=== PATIENT | female | born 1990 | race Caucasian/White ===

== ENCOUNTER 2016-05-11 11:14 | Emergency (ER) | payer BC ==
[~2016-05-11] VITALS: Ht 170.2 cm; Wt 61.7 kg
[2016-05-11 11:15] VITALS: BP 143/87; PULSE 99; RESP 24; TEMP 98.4; O2SAT 100
--- NOTE | 2016-05-11 11:15 | NUR ---
Patient in stable condition, alert and oriented x4. Patient states began a new weight loss supplement yesterday and stopped drinking alcohol yesterday and now feels heart palpitations. Patient states has been drinking a few bottles of wine everyday for 2 years and now wants to stop. Patient appears shaky. No chest pain, pressure or radiating pain per patient. Addendum: 05/11/16 at 1140 by GREG heart palpitations since yesterday
--- NOTE | 2016-05-11 11:16 | NUR ---
Dr. Moseley at bedside
[2016-05-11] MEDS ORDERED: NACL 0.9% 1,000 ML IV ONE (11:30)
[2016-05-11] MEDS ORDERED: LORazepam 2 MG/ML VIAL (FOR ER USE) IVP ONE (11:30)
[2016-05-11] MEDS ORDERED: FOLIC ACID 1 MG, THIAMINE HCL 100 MG, MAGNESIUM SULFATE 1 GM, MVI 10 ML in NACL 0.9% 1,... IV ONE (11:30)
[2016-05-11 11:34] LABS: BASOPHILS % (AUTO) 0.4 % (0.0-2.0); EOSINOPHILS # (AUTO) 0.3 K/uL (0.0-0.4); EOSINOPHILS % (AUTO) 3.2 % (0.0-4.0); HEMATOCRIT 43.1 % (36-48); HEMOGLOBIN 14.5 g/dL (12.0-16.0); LYMPHOCYTES % (AUTO) 20.6 % (20.5-51.5); MEAN CORPUSCULAR HEMOGLOBIN 32 pg (27-31); MEAN CORPUSCULAR HGB CONC 34 % (32-36); MEAN CORPUSCULAR VOLUME 95 fL (79.0-98.0); MONOCYTES # (AUTO) 0.5 K/uL (0.0-1.0); NEUTROPHILS # (AUTO) 6.8 K/uL (1.8-7.7); NEUTROPHILS % (AUTO) 70.8 % (40.0-70.0); PLATELET COUNT (AUTO) 267 K/uL (130-430); RED BLOOD CELL COUNT(AUTO) 4.53 MIL/uL (4.2-6.2); WHITE BLOOD COUNT (AUTO) 9.6 K/uL (4.8-10.8)
[2016-05-11 11:46] LABS: BILIRUBIN,URINE NEGATIVE (NEGATIVE); BLOOD, URINE NEGATIVE (NEGATIVE); CLARITY/URINE SL HAZY (CLEAR); COLOR,URINE YELLOW (YELLOW); GLUCOSE,URINE NEGATIVE (NEGATIVE); KETONES,URINE NEGATIVE (NEGATIVE); LEUKOCYTE ESTERASE ,URINE 1+ (NEGATIVE); NITRITE, URINE NEGATIVE (NEGATIVE); PROTEIN URINE NEGATIVE (NEGATIVE); UROBILINOGEN,URINE 0.2 (0.2-1.0)
[2016-05-11 11:47] LABS: ANION GAP 9 (5-15); CALCIUM 9.5 mg/dL (8.4-11.0); CHLORIDE 101 mmol/L (98-107); CREATININE 0.74 mg/dL (0.55-1.30); GFR AFRICAN AMERICAN 124 mL/min (>90); GLUCOSE 89 mg/dL (70-99); POTASSIUM 3.9 mmol/L (3.5-5.1); SODIUM SERUM 136 mmol/L (136-145); UREA NITROGEN, BLOOD 10 mg/dL (8-21)
[2016-05-11 11:48] LABS: INR 0.9 (0.8-1.2); PROTHROMBIN TIME 10.2 SECS (9.5-12.5)
[2016-05-11 11:51] LABS: ALANINE AMINOTRANSFERASE 35 U/L (12-78); ALBUMIN 4.2 g/dL (3.4-4.8); ALCOHOL, BLOOD 66 mg/dL (<10); ASPARTATE AMINOTRANSFERASE 37 U/L (10-37); TOTAL BILIRUBIN 0.9 mg/dL (0.0-1.0); TOTAL PROTEIN, SERUM 8.4 g/dL (6.4-8.3)
[2016-05-11 11:52] LABS: ACETAMINOPHEN < 1 ug/mL (1-30); SALICYLATE < 1 mg/dL (3-30)
[2016-05-11 12:00] LABS: BACTERIA,URINE FEW /HPF (None Seen); RBC,URINE NONE SEEN /HPF (0-3)
[2016-05-11 12:05] LABS: BARBITURATE, URINE NEGATIVE (NEG <=200); BENZODIAZEPINE, URINE NEGATIVE (NEG <=150); CANNABINOID, URINE NEGATIVE (NEG <=50); COCAINE, URINE NEGATIVE (NEG <=150); METHAMPHETAMINES SCREEN,URINE NEGATIVE (NEG <=500); OPIATE, URINE NEGATIVE (NEG <=100); PHENCYCLIDINE SCREEN,URINE NEGATIVE (NEG <=25); UR TRICYCLIC ANTIDEPRESSANTS NEGATIVE (NEG <=300); URINE AMPHETAMINE NEGATIVE (NEG <=500); URINE METHADONE NEGATIVE (NEG <=200); URINE OXYCODONE SCREEN NEGATIVE (NEG <=100); URINE PROPOXYPHENE SCREEN NEGATIVE (NEG <=300)
--- NOTE | 2016-05-11 12:30 | NUR ---
Called pharmacy again regarding need for banana bag, stated will bring
--- NOTE | 2016-05-11 13:08 | NUR ---
Patient in stable condition, no tremors/shakiness noted. Stated is feeling better.
[2016-05-11 14:00] VITALS: BP 115/71; PULSE 84; RESP 18; TEMP 98.1; O2SAT 100
--- NOTE | 2016-05-11 14:00 | NUR ---
Patient given written and verbal discharge instructions and verbalizes understanding. ER MD discussed with patient the results and treatment provided. Patient in stable condition. ID arm band removed. IV catheter removed intact and dressing applied, no active bleeding. Rx of ativan 1mg given. Patient educated on pain management and to follow up with PMD. Pain Scale 0/10. Opportunity for questions provided and answered.
== END 2016-05-11 14:00 | disposition home or self-care (01) ==
LOC: SED 11:14
DX: F10.239 Alcohol dependence with withdrawal, unspecified (principal); Y90.3 Blood alcohol level of 60-79 mg/100 ml
CPT/HCPCS: 36415; 71010; 80053; 80307; 81000; 81025; 84484; 85025; 85610; 85730; 87086; 93005; 96361; 96365; 96375; 99285; G0480; G0481; G0482; J2060; J3411; J3475; J3490; J7030

== ENCOUNTER 2016-12-26 10:44 | Inpatient (IN) | payer BC ==
[~2016-12-26] VITALS: Ht 170.2 cm; Wt 56.7 kg
[2016-12-26 10:45] VITALS: BP_SYST 135
[2016-12-26] MEDS ORDERED: LORazepam 2 MG/ML VIAL (FOR ER USE) IVP ONE (11:00)
[2016-12-26] MEDS ORDERED: NACL 0.9% 1,000 ML IV ONE ×2 (11:00→11:30)
[2016-12-26 11:18] LABS: BASOPHILS # (AUTO) 0.1 K/uL (0.0-0.2); BASOPHILS % (AUTO) 1.2 % (0.0-2.0); EOSINOPHILS # (AUTO) 0.4 K/uL (0.0-0.4); EOSINOPHILS % (AUTO) 7.5 % (0.0-4.0); HEMOGLOBIN 13.6 g/dL (12.0-16.0); LYMPHOCYTES # (AUTO) 2.2 K/uL (1.0-5.5); LYMPHOCYTES % (AUTO) 38.7 % (20.5-51.5); MEAN CORPUSCULAR HEMOGLOBIN 33 pg (27-31); MEAN CORPUSCULAR HGB CONC 33 % (32-36); MEAN CORPUSCULAR VOLUME 98 fL (79.0-98.0); MONOCYTES # (AUTO) 0.5 K/uL (0.0-1.0); NEUTROPHILS # (AUTO) 2.4 K/uL (1.8-7.7); NEUTROPHILS % (AUTO) 43.6 % (40.0-70.0); PLATELET COUNT (AUTO) 273 K/uL (130-430); RED BLOOD CELL COUNT(AUTO) 4.17 MIL/uL (4.2-6.2); RED CELL DISTRIBUTION WIDTH 13.3 % (9.0-15.0); WHITE BLOOD COUNT (AUTO) 5.6 K/uL (4.8-10.8)
[2016-12-26] MEDS ORDERED: LORazepam 2 MG/ML VIAL IVP PRN (11:30)
[2016-12-26] MEDS ORDERED: MORPHINE 2 MG/ML INJ. SYRINGE IVP PRN (11:30)
[2016-12-26] MEDS ORDERED: DOCUSATE SODIUM 100 MG CAPSULE PO PRN (11:30)
[2016-12-26] MEDS ORDERED: ACETAMINOPHEN 325 MG TABLET PO PRN (11:30)
[2016-12-26] MEDS ORDERED: POTASSIUM CHLORIDE 10 MEQ TAB.PRT.SR PO PRN (11:30)
[2016-12-26] MEDS ORDERED: ONDANSETRON HCL 4 MG/2 ML VIAL IVP PRN (11:30)
[2016-12-26] MEDS ORDERED: MAGNESIUM SULFATE 50 ML IV PRN (11:30)
[2016-12-26 11:32] LABS: BARBITURATE, URINE NEGATIVE (NEG <=200); BENZODIAZEPINE, URINE NEGATIVE (NEG <=150); CANNABINOID, URINE NEGATIVE (NEG <=50); COCAINE, URINE NEGATIVE (NEG <=150); METHAMPHETAMINES SCREEN,URINE NEGATIVE (NEG <=500); OPIATE, URINE NEGATIVE (NEG <=100); PHENCYCLIDINE SCREEN,URINE NEGATIVE (NEG <=25); UR TRICYCLIC ANTIDEPRESSANTS NEGATIVE (NEG <=300); URINE AMPHETAMINE NEGATIVE (NEG <=500); URINE METHADONE NEGATIVE (NEG <=200); URINE OXYCODONE SCREEN NEGATIVE (NEG <=100); URINE PROPOXYPHENE SCREEN NEGATIVE (NEG <=300)
[2016-12-26 11:36] LABS: CALCIUM 9.3 mg/dL (8.4-11.0); CREATININE 0.73 mg/dL (0.55-1.30); POTASSIUM 3.7 mmol/L (3.5-5.1)
[2016-12-26 11:40] LABS: TOTAL BILIRUBIN 0.5 mg/dL (0.0-1.0)
[2016-12-26] MEDS ORDERED: chlordiazePOXIDE HCL 25 MG CAPSULE PO PRN (11:45)
[2016-12-26] MEDS ORDERED: ALBMDI INH (11:46)
[2016-12-26 13:08] VITALS: BP_SYST 120
[2016-12-26] MEDS ORDERED: levETIRAcetam 500 MG TABLET PO ONE (15:30)
[2016-12-26] MEDS ORDERED: levETIRAcetam 1,000 MG in NS 100 ML IV ONE (16:00)
[2016-12-26] MEDS ORDERED: ALBUTEROL SULFATE 0.083% 2.5 MG/3 ML VIAL.NEB INH PRN (16:00)
[2016-12-26] MEDS ORDERED: TOPIRAMATE 25 MG TABLET(TOPAMAX) PO ONE (16:15)
[2016-12-26 16:51] VITALS: BP_SYST 120
[2016-12-26] MEDS: MORPHINE 2 MG/ML INJ. SYRINGE IVP PRN ×2 (19:53→23:53)
[2016-12-26] MEDS: TOPIRAMATE 25 MG TABLET(TOPAMAX) PO SCH (21:19)
[2016-12-26] MEDS: levETIRAcetam 500 MG TABLET PO SCH (21:19)
[2016-12-26] MEDS: chlordiazePOXIDE HCL 25 MG CAPSULE PO PRN (21:31)
[2016-12-26] MEDS: ZOLPIDEM TARTRATE 5 MG TABLET PO PRN (21:31)
[2016-12-26] MEDS ORDERED: FOLIC ACID 1 MG, THIAMINE HCL 100 MG, MAGNESIUM SULFATE 1 GM, MVI 10 ML in NACL 0.9% 1,... IV ONE (22:15)
[2016-12-27] VITALS (7 sets, daily range): BP systolic 104–139
[2016-12-27] MEDS: MORPHINE 2 MG/ML INJ. SYRINGE IVP PRN ×4 (04:06→20:00)
[2016-12-27] MEDS: chlordiazePOXIDE HCL 25 MG CAPSULE PO PRN ×4 (06:28→20:33)
[2016-12-27 07:38] LABS: BASOPHILS # (AUTO) 0.1 K/uL (0.0-0.2); BASOPHILS % (AUTO) 0.8 % (0.0-2.0); EOSINOPHILS # (AUTO) 0.8 K/uL (0.0-0.4); EOSINOPHILS % (AUTO) 12.2 % (0.0-4.0); HEMATOCRIT 38.2 % (36-48); HEMOGLOBIN 13.1 g/dL (12.0-16.0); LYMPHOCYTES # (AUTO) 3.2 K/uL (1.0-5.5); LYMPHOCYTES % (AUTO) 46.9 % (20.5-51.5); MEAN CORPUSCULAR HEMOGLOBIN 34 pg (27-31); MEAN CORPUSCULAR HGB CONC 34 % (32-36); MEAN CORPUSCULAR VOLUME 99 fL (79.0-98.0); MONOCYTES # (AUTO) 0.4 K/uL (0.0-1.0); NEUTROPHILS # (AUTO) 2.3 K/uL (1.8-7.7); NEUTROPHILS % (AUTO) 34.1 % (40.0-70.0); PLATELET COUNT (AUTO) 215 K/uL (130-430); RED BLOOD CELL COUNT(AUTO) 3.85 MIL/uL (4.2-6.2); RED CELL DISTRIBUTION WIDTH 13.1 % (9.0-15.0); WHITE BLOOD COUNT (AUTO) 6.8 K/uL (4.8-10.8)
[2016-12-27 07:54] LABS: CALCIUM 9.3 mg/dL (8.4-11.0); CREATININE 0.72 mg/dL (0.55-1.30); POTASSIUM 3.5 mmol/L (3.5-5.1)
[2016-12-27] MEDS: TOPIRAMATE 25 MG TABLET(TOPAMAX) PO SCH ×2 (09:40→20:34)
[2016-12-27] MEDS: CITALOPRAM HYDROBROMIDE 20 MG TABLET PO SCH (09:40)
[2016-12-27] MEDS: levETIRAcetam 500 MG TABLET PO SCH ×2 (09:40→20:33)
[2016-12-27] MEDS: ZOLPIDEM TARTRATE 5 MG TABLET PO PRN (21:28)
[2016-12-28] MEDS: MORPHINE 2 MG/ML INJ. SYRINGE IVP PRN ×2 (02:16→06:18)
[2016-12-28] MEDS: chlordiazePOXIDE HCL 25 MG CAPSULE PO PRN ×3 (02:35→09:55)
[2016-12-28 03:40] VITALS: BP_SYST 108
[2016-12-28 07:46] LABS: BASOPHILS % (AUTO) 0.6 % (0.0-2.0); EOSINOPHILS # (AUTO) 0.8 K/uL (0.0-0.4); EOSINOPHILS % (AUTO) 10.4 % (0.0-4.0); HEMATOCRIT 40.7 % (36-48); HEMOGLOBIN 13.8 g/dL (12.0-16.0); LYMPHOCYTES # (AUTO) 2.7 K/uL (1.0-5.5); MEAN CORPUSCULAR HEMOGLOBIN 34 pg (27-31); MEAN CORPUSCULAR HGB CONC 34 % (32-36); MEAN CORPUSCULAR VOLUME 99 fL (79.0-98.0); MONOCYTES # (AUTO) 0.5 K/uL (0.0-1.0); MONOCYTES % (AUTO) 6.2 % (1.7-9.3); NEUTROPHILS # (AUTO) 3.9 K/uL (1.8-7.7); NEUTROPHILS % (AUTO) 48.8 % (40.0-70.0); PLATELET COUNT (AUTO) 232 K/uL (130-430); RED CELL DISTRIBUTION WIDTH 12.9 % (9.0-15.0); WHITE BLOOD COUNT (AUTO) 7.9 K/uL (4.8-10.8)
[2016-12-28 08:01] LABS: CALCIUM 9.5 mg/dL (8.4-11.0); CREATININE 0.8 mg/dL (0.55-1.30); POTASSIUM 3.9 mmol/L (3.5-5.1)
[2016-12-28 08:15] VITALS: BP_SYST 144
[2016-12-28] MEDS: CITALOPRAM HYDROBROMIDE 20 MG TABLET PO SCH (09:55)
[2016-12-28] MEDS: levETIRAcetam 500 MG TABLET PO SCH (09:56)
[2016-12-28] MEDS: TOPIRAMATE 25 MG TABLET(TOPAMAX) PO SCH (09:56)
[2016-12-28 10:13] VITALS: BP_SYST 144
[2016-12-28] MEDS ORDERED: TOP25 (10:19)
[2016-12-28] MEDS ORDERED: CEL20 PO (10:20)
[2016-12-28] MEDS ORDERED: TOP25 PO (10:20)
[2016-12-28] MEDS ORDERED: HYDR-1189 PO (10:20)
== END 2016-12-28 11:10 | disposition home or self-care (01) | DRG 101 ==
LOC: SED 10:44 → STU 12:48
PROVIDERS: ADMIT General Practice; ATTEND General Practice
DX: G40.409 Other generalized epilepsy and epileptic syndromes, not intractable, without status epilepticus (principal); F10.239 Alcohol dependence with withdrawal, unspecified; F17.200 Nicotine dependence, unspecified, uncomplicated; J45.909 Unspecified asthma, uncomplicated; F32.9 Major depressive disorder, single episode, unspecified; F41.1 Generalized anxiety disorder; Z88.8 Allergy status to other drugs, medicaments and biological substances; Z91.14 Patient's other noncompliance with medication regimen
CPT/HCPCS: 36415; 80048; 80053; 80307; 81025; 83735-TC; 84703; 85025; 96361; 96374; 99285; G0482; J1953; J2060; J2270; J3411; J3475; J3490; J7030

== ENCOUNTER 2017-02-19 08:39 | Emergency (ER) | payer BC ==
[~2017-02-19] VITALS: Ht 170.2 cm; Wt 54.4 kg
[~2017-02-19 08:39] MED LIST: ALBMDI INH; CEL20 PO; HYDR-1189 PO; TOP25 PO
[2017-02-19] MEDS ORDERED: methylPREDNISolone SOD SUCC/PF 62.5 MG/ML VIAL IVP ONE (08:45)
[2017-02-19] MEDS ORDERED: IPRATROPIUM BROM 0.5 MG/2.5 ML VIAL.NEB (ATROVENT) IH ONE (08:45)
[2017-02-19] MEDS ORDERED: ALBUTEROL SULFATE 0.083% 2.5 MG/3 ML VIAL.NEB IH ONE ×2 (08:45→10:15)
[2017-02-19 08:46] VITALS: BP_SYST 164
[2017-02-19] MEDS ORDERED: methylPREDNISolone SOD SUCC/PF 62.5 MG/ML VIAL ONE (08:46)
--- NOTE | 2017-02-19 08:46 | NUR ---
Patient to ER bed 6 to gown for evaluation. Side rails up. Report given to Félix CORBETT.
--- NOTE | 2017-02-19 08:47 | NUR ---
ER at bedside examining patient.
--- NOTE | 2017-02-19 08:50 | NUR ---
Pt presents to ED c/o asthma exacerbation since approx 0400 this AM. Pt s/s not resolving w/ home breathing tx. Pt has audible wheezes. RT called for breathing tx.
--- NOTE | 2017-02-19 09:00 | NUR ---
Pt tolerating breathing tx well. Pt reports mild improvement.
--- NOTE | 2017-02-19 09:52 | NUR ---
EL Parada at bedside for reevaluation of patient.
--- NOTE | 2017-02-19 10:30 | NUR ---
Pt no longer has auble wheezes.Pt shaking from breathing tx.
--- NOTE | 2017-02-19 11:30 | NUR ---
Pt receiving peek flow. Pt reports continued resolving of symptoms.
[2017-02-19 12:50] VITALS: BP_SYST 147
--- NOTE | 2017-02-19 12:50 | NUR ---
Patient does not wish to proceed with medical care recommended by Dr. Mohan. Patient given information related to possible complications, up to and including , which could occur as a result of leaving hospital at this time. Patient verbalizes understanding of risks involved leaving against medical advice. Patient has signed AMA form.
== END 2017-02-19 12:40 | disposition left against medical advice (07) ==
LOC: SED 08:39
DX: J45.901 Unspecified asthma with (acute) exacerbation (principal); E11.9 Type 2 diabetes mellitus without complications; I10 Essential (primary) hypertension; Z88.8 Allergy status to other drugs, medicaments and biological substances; Z79.899 Other long term (current) drug therapy
CPT/HCPCS: 94150; 94640; 96374; 99284; J2930

== ENCOUNTER 2017-09-08 22:40 | Emergency (ER) | payer BC ==
[~2017-09-08] VITALS: Ht 170.2 cm; Wt 56.7 kg
[2017-09-08 22:50] VITALS: BP_SYST 119
[2017-09-08] MEDS ORDERED: LORazepam 2 MG/ML VIAL IM ONE (23:15)
[2017-09-08] MEDS ORDERED: LORazepam 2 MG/ML VIAL (FOR ER USE) ONE (23:23)
[2017-09-08 23:57] VITALS: BP_SYST 121
== END 2017-09-08 23:57 | disposition home or self-care (01) ==
LOC: SED 22:40
DX: F11.23 Opioid dependence with withdrawal (principal); F19.10 Other psychoactive substance abuse, uncomplicated; J45.909 Unspecified asthma, uncomplicated; Z79.899 Other long term (current) drug therapy; Z88.8 Allergy status to other drugs, medicaments and biological substances
CPT/HCPCS: 96372; 99283; J2060

== ENCOUNTER 2018-01-10 09:28 | Emergency (ER) | payer BC ==
[~2018-01-10] VITALS: Ht 170.2 cm; Wt 56.7 kg
[2018-01-10 09:28] VITALS: BP_SYST 123
[2018-01-10] MEDS ORDERED: IPRATROPIUM/ALBUTEROL SULFATE 3 ML AMPUL.NEB (DUONEB) INH ONE ×2 (09:45→11:00)
[2018-01-10] MEDS ORDERED: methylPREDNISolone SOD SUCC/PF 62.5 MG/ML VIAL IVP ONE (09:45)
[2018-01-10 09:51] LABS: BASOPHILS # (AUTO) 0.2 K/uL (0.0-0.2); EOSINOPHILS # (AUTO) 1.4 K/uL (0.0-0.4); EOSINOPHILS % (AUTO) 11.9 % (0.0-4.0); HEMATOCRIT 45.1 % (36-48); HEMOGLOBIN 14.7 g/dL (12.0-16.0); LYMPHOCYTES # (AUTO) 2.7 K/uL (1.0-5.5); LYMPHOCYTES % (AUTO) 22.7 % (20.5-51.5); MEAN CORPUSCULAR HEMOGLOBIN 30 pg (27-31); MEAN CORPUSCULAR HGB CONC 33 % (32-36); MEAN CORPUSCULAR VOLUME 93 fL (79.0-98.0); MONOCYTES # (AUTO) 0.7 K/uL (0.0-1.0); MONOCYTES % (AUTO) 5.7 % (1.7-9.3); NEUTROPHILS # (AUTO) 6.9 K/uL (1.8-7.7); NEUTROPHILS % (AUTO) 57.7 % (40.0-70.0); PLATELET COUNT (AUTO) 379 K/uL (130-430); RED BLOOD CELL COUNT(AUTO) 4.86 MIL/uL (4.2-6.2); RED CELL DISTRIBUTION WIDTH 13.5 % (9.0-15.0); WHITE BLOOD COUNT (AUTO) 11.9 K/uL (4.8-10.8)
[2018-01-10 10:01] LABS: CREATININE 0.85 mg/dL (0.55-1.30); POTASSIUM 4.1 mmol/L (3.5-5.1)
[2018-01-10 10:07] LABS: ALBUMIN 4.1 g/dL (3.4-4.8); TOTAL BILIRUBIN 0.4 mg/dL (0.0-1.0)
[2018-01-10 11:36] VITALS: BP_SYST 134
== END 2018-01-10 11:35 | disposition home or self-care (01) ==
LOC: SED 09:28
DX: J45.901 Unspecified asthma with (acute) exacerbation (principal); F41.9 Anxiety disorder, unspecified; Z88.8 Allergy status to other drugs, medicaments and biological substances; Z79.899 Other long term (current) drug therapy
CPT/HCPCS: 36415; 71045; 80053; 85025; 94640; 96374; 99285; J2930; J7620

== ENCOUNTER 2018-03-28 19:15 | Emergency (ER) | payer BC, MEDICAID ==
[~2018-03-28] VITALS: Ht 170.2 cm; Wt 56.7 kg
[2018-03-28 19:28] VITALS: BP_SYST 158
[2018-03-28] MEDS ORDERED: ALBUTEROL SULFATE 0.083% 2.5 MG/3 ML VIAL.NEB INH ONE ×3 (19:28→20:15)
[2018-03-28] MEDS ORDERED: LEVOFLOXACIN 500 MG/D5W 100 ML IV ONE (19:30)
[2018-03-28] MEDS ORDERED: methylPREDNISolone SOD SUCC/PF 62.5 MG/ML VIAL IVP ONE (19:30)
[2018-03-28] MEDS ORDERED: EPINEPHrine 1 MG/ML AMP SUBCUT ONE (19:30)
[2018-03-28] MEDS ORDERED: NACL 0.9% 1,000 ML IV ONE (19:30)
[2018-03-28 19:57] LABS: BASOPHILS # (AUTO) 0.1 K/uL (0.0-0.2); BASOPHILS % (AUTO) 1.1 % (0.0-2.0); EOSINOPHILS # (AUTO) 1.3 K/uL (0.0-0.4); HEMATOCRIT 41.8 % (36-48); HEMOGLOBIN 13.8 g/dL (12.0-16.0); LYMPHOCYTES # (AUTO) 2.4 K/uL (1.0-5.5); LYMPHOCYTES % (AUTO) 21.2 % (20.5-51.5); MEAN CORPUSCULAR HEMOGLOBIN 30 pg (27-31); MEAN CORPUSCULAR HGB CONC 33 % (32-36); MEAN CORPUSCULAR VOLUME 91 fL (79.0-98.0); MONOCYTES # (AUTO) 0.9 K/uL (0.0-1.0); MONOCYTES % (AUTO) 7.9 % (1.7-9.3); NEUTROPHILS # (AUTO) 6.8 K/uL (1.8-7.7); NEUTROPHILS % (AUTO) 58.8 % (40.0-70.0); PLATELET COUNT (AUTO) 361 K/uL (130-430); RED BLOOD CELL COUNT(AUTO) 4.59 MIL/uL (4.2-6.2); RED CELL DISTRIBUTION WIDTH 13.1 % (9.0-15.0); WHITE BLOOD COUNT (AUTO) 11.5 K/uL (4.8-10.8)
[2018-03-28 19:58] LABS: CALCIUM 8.5 mg/dL (8.4-11.0); CREATININE 0.64 mg/dL (0.55-1.30); POTASSIUM 3.8 mmol/L (3.5-5.1)
[2018-03-28 20:04] LABS: ALBUMIN 3.9 g/dL (3.4-4.8); TOTAL BILIRUBIN 0.2 mg/dL (0.0-1.0)
[2018-03-28] MEDS ORDERED: BUDESONIDE 0.5 MG/2 ML AMPUL.NEB INH ONE (20:15)
[2018-03-28] MEDS ORDERED: MAGNESIUM SULFATE 1 GM/2 ML VIAL IVP ONE (21:00)
[2018-03-28] MEDS ORDERED: LevALBUTEROL HCL 1.25 MG/0.5 ML *CONC.* VIAL.NEB (XOPENEX CONC.) INH ONE (21:30)
[2018-03-28 22:15] VITALS: BP_SYST 124
== END 2018-03-28 22:15 | disposition home or self-care (01) ==
LOC: SED 19:15
DX: J45.901 Unspecified asthma with (acute) exacerbation (principal); F41.9 Anxiety disorder, unspecified; Z88.8 Allergy status to other drugs, medicaments and biological substances
CPT/HCPCS: 36415; 71045; 80053; 85025; 86710; 87040; 94640; 96365; 96372; 96375; 99285; J0171; J1956; J2930; J3475; J7030; J7612; J7613; J7626

== ENCOUNTER 2018-04-06 12:16 | Emergency (ER) | payer MEDICAID ==
[~2018-04-06] VITALS: Ht 175.3 cm; Wt 65.8 kg
[~2018-04-06 12:16] MED LIST changes: -CEL20 PO; -HYDR-1189 PO; -TOP25 PO
[2018-04-06 12:22] VITALS: BP_SYST 149
[2018-04-06] MEDS ORDERED: IPRATROPIUM BROM 0.5 MG/2.5 ML VIAL.NEB (ATROVENT) IH ONE ×3 (12:30→14:30)
[2018-04-06] MEDS ORDERED: PREDNISONE 20 MG TABLET PO ONE (12:30)
[2018-04-06] MEDS ORDERED: ALBUTEROL SULFATE 0.083% 2.5 MG/3 ML VIAL.NEB IH ONE ×4 (12:30→14:30)
[2018-04-06 15:48] VITALS: BP_SYST 121
== END 2018-04-06 15:48 | disposition home or self-care (01) ==
LOC: SED 12:16
DX: J45.909 Unspecified asthma, uncomplicated (principal); R05 Cough; R03.0 Elevated blood-pressure reading, without diagnosis of hypertension; F41.9 Anxiety disorder, unspecified; F17.210 Nicotine dependence, cigarettes, uncomplicated; Z79.899 Other long term (current) drug therapy
CPT/HCPCS: 94640; 99285; J7512; J7613

== ENCOUNTER 2018-07-22 16:17 | Inpatient (IN) | payer MEDICAID ==
[~2018-07-22] VITALS: Ht 170.2 cm; Wt 55.8 kg
[2018-07-22 16:41] VITALS: BP_SYST 140
[2018-07-22] MEDS ORDERED: NACL 0.9% 1,000 ML IV ONE (16:50)
[2018-07-22] MEDS ORDERED: LORazepam 2 MG/ML VIAL (FOR ER USE) IVP ONE ×2 (17:00→18:30)
[2018-07-22 17:11] LABS: BILIRUBIN,URINE NEGATIVE (NEGATIVE); BLOOD, URINE NEGATIVE (NEGATIVE); CLARITY/URINE CLEAR (CLEAR); COLOR,URINE YELLOW (YELLOW); GLUCOSE,URINE NEGATIVE (NEGATIVE); KETONES,URINE NEGATIVE (NEGATIVE); LEUKOCYTE ESTERASE ,URINE TRACE (NEGATIVE); NITRITE, URINE NEGATIVE (NEGATIVE); PROTEIN URINE NEGATIVE (NEGATIVE); UROBILINOGEN,URINE 0.2 (0.2-1.0)
[2018-07-22 17:28] LABS: BASOPHILS # (AUTO) 0.1 K/uL (0.0-0.2); BASOPHILS % (AUTO) 0.5 % (0.0-2.0); EOSINOPHILS % (AUTO) 0.4 % (0.0-4.0); HEMATOCRIT 44.5 % (36-48); HEMOGLOBIN 15.2 g/dL (12.0-16.0); LYMPHOCYTES # (AUTO) 1.3 K/uL (1.0-5.5); LYMPHOCYTES % (AUTO) 12.9 % (20.5-51.5); MEAN CORPUSCULAR HEMOGLOBIN 31 pg (27-31); MEAN CORPUSCULAR HGB CONC 34 % (32-36); MEAN CORPUSCULAR VOLUME 92 fL (79.0-98.0); MONOCYTES # (AUTO) 0.4 K/uL (0.0-1.0); MONOCYTES % (AUTO) 4.2 % (1.7-9.3); NEUTROPHILS # (AUTO) 8.3 K/uL (1.8-7.7); PLATELET COUNT (AUTO) 348 K/uL (130-430); RED BLOOD CELL COUNT(AUTO) 4.86 MIL/uL (4.2-6.2); RED CELL DISTRIBUTION WIDTH 14.6 % (9.0-15.0); WHITE BLOOD COUNT (AUTO) 10.1 K/uL (4.8-10.8)
[2018-07-22 17:30] LABS: BACTERIA,URINE RARE /HPF (None Seen); MUCUS,URINE None Seen /LPF (None Seen); RBC,URINE 0-3 /HPF (0-3); WBC,URINE 0-3 /HPF (0-3)
[2018-07-22 17:35] LABS: BARBITURATE, URINE NEGATIVE (NEG <=200); BENZODIAZEPINE, URINE NEGATIVE (NEG <=150); CANNABINOID, URINE POSITIVE (NEG <=50); COCAINE, URINE NEGATIVE (NEG <=150); METHAMPHETAMINES SCREEN,URINE NEGATIVE (NEG <=500); OPIATE, URINE NEGATIVE (NEG <=100); PHENCYCLIDINE SCREEN,URINE NEGATIVE (NEG <=25); UR TRICYCLIC ANTIDEPRESSANTS NEGATIVE (NEG <=300); URINE AMPHETAMINE NEGATIVE (NEG <=500); URINE METHADONE NEGATIVE (NEG <=200); URINE OXYCODONE SCREEN NEGATIVE (NEG <=100); URINE PROPOXYPHENE SCREEN NEGATIVE (NEG <=300)
[2018-07-22 18:06] LABS: PROTHROMBIN TIME 9.9 SECS (9.5-12.5)
[2018-07-22 18:09] LABS: CALCIUM 9.3 mg/dL (8.4-11.0); CREATININE 0.7 mg/dL (0.55-1.30); POTASSIUM 3.9 mmol/L (3.5-5.1)
[2018-07-22 18:13] LABS: ALBUMIN 3.8 g/dL (3.4-4.8); TOTAL BILIRUBIN 0.8 mg/dL (0.0-1.0)
[2018-07-22] MEDS ORDERED: cefTRIAXone 1 GM VIAL IM ONE (18:30)
[2018-07-22] MEDS ORDERED: LORA2TAB95 PO (18:41)
[2018-07-22] MEDS ORDERED: cefTRIAXone 1 GM in D5W 50 ML IV ONE (19:00)
[2018-07-22] MEDS ORDERED: cefTRIAXone 1 GM VIAL ONE (19:09)
[2018-07-22 19:33] VITALS: BP_SYST 134
[2018-07-22 20:00] VITALS: BP_SYST 134
[2018-07-22] MEDS ORDERED: ACETAMINOPHEN 325 MG TABLET PO PRN (21:30)
[2018-07-22] MEDS: LORazepam 2 MG/ML VIAL IVP PRN (21:59)
[2018-07-22] MEDS ORDERED: chlordiazePOXIDE HCL 25 MG CAPSULE PO SCH (22:00)
[2018-07-22] MEDS ORDERED: FAMOTIDINE 20 MG TABLET PO SCH (22:00)
[2018-07-22] MEDS ORDERED: KCL 20 mEq in D5/0.45NS 1000mL 1,000 ML IV ONE (22:10)
[2018-07-22] MEDS: KCL 20 mEq in D5/0.45NS 1000mL 1,000 ML IV SCH (22:21)
[2018-07-22] MEDS: HYDROcodone/ACETAMIN 5-325 MG TAB (NORCO/ VICODIN) PO PRN (23:58)
[2018-07-23 01:23] VITALS: BP_SYST 114
[2018-07-23] MEDS: LORazepam 2 MG/ML VIAL IVP PRN ×6 (02:50→23:39)
[2018-07-23 06:28] LABS: BASOPHILS # (AUTO) 0.1 K/uL (0.0-0.2); BASOPHILS % (AUTO) 0.8 % (0.0-2.0); EOSINOPHILS # (AUTO) 0.2 K/uL (0.0-0.4); EOSINOPHILS % (AUTO) 3.8 % (0.0-4.0); HEMATOCRIT 39.3 % (36-48); HEMOGLOBIN 13.2 g/dL (12.0-16.0); LYMPHOCYTES # (AUTO) 2.2 K/uL (1.0-5.5); LYMPHOCYTES % (AUTO) 33.1 % (20.5-51.5); MEAN CORPUSCULAR HEMOGLOBIN 31 pg (27-31); MEAN CORPUSCULAR HGB CONC 34 % (32-36); MEAN CORPUSCULAR VOLUME 92 fL (79.0-98.0); MONOCYTES # (AUTO) 0.6 K/uL (0.0-1.0); MONOCYTES % (AUTO) 8.9 % (1.7-9.3); NEUTROPHILS # (AUTO) 3.5 K/uL (1.8-7.7); NEUTROPHILS % (AUTO) 53.4 % (40.0-70.0); PLATELET COUNT (AUTO) 272 K/uL (130-430); RED BLOOD CELL COUNT(AUTO) 4.27 MIL/uL (4.2-6.2); RED CELL DISTRIBUTION WIDTH 14.6 % (9.0-15.0)
[2018-07-23] MEDS: HYDROcodone/ACETAMIN 5-325 MG TAB (NORCO/ VICODIN) PO PRN ×2 (06:29→19:53)
[2018-07-23 07:03] LABS: WHITE BLOOD COUNT (AUTO) 6.6 K/uL (4.8-10.8)
[2018-07-23 07:22] LABS: ALBUMIN 3.3 g/dL (3.4-4.8); CALCIUM 9.1 mg/dL (8.4-11.0); CREATININE 0.73 mg/dL (0.55-1.30); POTASSIUM 3.6 mmol/L (3.5-5.1); THYROID STIMULATING HORMONE 0.95 uIu/mL (0.34-4.82); TOTAL BILIRUBIN 1.1 mg/dL (0.0-1.0)
[2018-07-23 07:53] VITALS: BP_SYST 132
[2018-07-23] MEDS ORDERED: BANANA BAG 1 EA, MVI 10 ML, THIAMINE HCL 100 MG, FOLIC ACID 1 MG, MAGNESIUM SULFATE 1 G... IV SCH ×5 (08:00)
[2018-07-23] MEDS: KCL 20 mEq in D5/0.45NS 1000mL 1,000 ML IV SCH ×2 (08:00→18:35)
[2018-07-23] MEDS: METHOCARBAMOL 500 MG TABLET PO SCH ×3 (08:20→19:53)
[2018-07-23] MEDS: chlordiazePOXIDE HCL 25 MG CAPSULE PO SCH ×3 (08:20→19:53)
[2018-07-23] MEDS: FAMOTIDINE 20 MG TABLET PO SCH (08:20)
[2018-07-23] MEDS ORDERED: HYDROcodone/ACETAMIN 10-325 MG TAB PO ONE ×2 (09:15→23:30)
[2018-07-23 12:31] VITALS: BP_SYST 128
[2018-07-23 16:57] VITALS: BP_SYST 123
[2018-07-23 20:00] VITALS: BP_SYST 133
[2018-07-24 01:04] VITALS: BP_SYST 127
[2018-07-24] MEDS: LORazepam 2 MG/ML VIAL IVP PRN ×2 (03:42→08:00)
[2018-07-24 07:03] LABS: ALBUMIN 3.4 g/dL (3.4-4.8); CALCIUM 9.2 mg/dL (8.4-11.0); CREATININE 0.61 mg/dL (0.55-1.30); POTASSIUM 3.4 mmol/L (3.5-5.1)
[2018-07-24 08:08] VITALS: BP_SYST 126
[2018-07-24] MEDS ORDERED: POTASSIUM CHLORIDE 20 MEQ TAB.PRT.SR PO ONE (08:45)
[2018-07-24] MEDS: METHOCARBAMOL 500 MG TABLET PO SCH (09:06)
[2018-07-24] MEDS: FAMOTIDINE 20 MG TABLET PO SCH (09:06)
[2018-07-24] MEDS: chlordiazePOXIDE HCL 25 MG CAPSULE PO SCH (09:06)
== END 2018-07-24 09:55 | disposition left against medical advice (07) | DRG 770 ==
LOC: SED 16:17 → STU 18:47 → SMU 07-23 12:31
PROVIDERS: ADMIT Internal Medicine; ATTEND Internal Medicine
DX: F10.239 Alcohol dependence with withdrawal, unspecified (principal); R65.10 Systemic inflammatory response syndrome (SIRS) of non-infectious origin without acute organ dysfunction; F15.90 Other stimulant use, unspecified, uncomplicated; F41.9 Anxiety disorder, unspecified; J45.909 Unspecified asthma, uncomplicated; G89.29 Other chronic pain; Z53.21 Procedure and treatment not carried out due to patient leaving prior to being seen by health care provider; N39.0 Urinary tract infection, site not specified; Z88.8 Allergy status to other drugs, medicaments and biological substances; Z79.899 Other long term (current) drug therapy
CPT/HCPCS: 36415; 80053; 80307; 81000-TC; 81025; 82140-TC; 83690-TC; 83735-TC; 84443-TC; 85025; 85610-TC; 87086; 96361; 96365; 96375; 99285; G0378; G0482; J0696; J2060; J3411; J3475; J3490; J7030

== ENCOUNTER 2018-07-28 19:53 | Emergency (ER) | payer MEDICAID ==
[~2018-07-28] VITALS: Ht 170.2 cm; Wt 59.0 kg
[~2018-07-28 19:53] MED LIST changes: +LORA2TAB95 PO
[2018-07-28 20:05] VITALS: BP_SYST 121
[2018-07-28] MEDS ORDERED: ALPRAZolam 0.25 MG TABLET PO ONE (21:15)
[2018-07-28 22:11] VITALS: BP_SYST 128
== END 2018-07-28 22:11 | disposition home or self-care (01) ==
LOC: SED 19:53
DX: F41.0 Panic disorder [episodic paroxysmal anxiety] (principal); J45.909 Unspecified asthma, uncomplicated; Z88.8 Allergy status to other drugs, medicaments and biological substances; Z79.899 Other long term (current) drug therapy
CPT/HCPCS: 99284

== ENCOUNTER 2018-09-04 22:21 | Emergency (ER) | payer MEDICAID ==
[~2018-09-04] VITALS: Ht 170.2 cm; Wt 55.8 kg
[2018-09-04 22:26] VITALS: BP_SYST 129
--- NOTE | 2018-09-04 22:32 | NUR ---
Patient to ER bed 3 to gown for evaluation. Side rails up.
--- NOTE | 2018-09-04 22:40 | NUR ---
Pt BIB mother c/o alochol withdrawal. Pt states she has tremors and is "shaking so much." Pt states her last drink was yesterday. Pt is also c/o nausea and vomiting. Fever "comes and goes." No other injuries/complaints per patient or noted. Mother at bedside.
[2018-09-04] MEDS ORDERED: NACL 0.9% 1,000 ML IV ONE (22:44)
[2018-09-04] MEDS ORDERED: LORazepam 2 MG/ML VIAL (FOR ER USE) IVP ONE (22:45)
--- NOTE | 2018-09-04 22:46 | NUR ---
ER Dr. Rai at bedside examining patient.
--- NOTE | 2018-09-04 23:23 | NUR ---
Medications were given, pt tolerated well. No adverse reaction, will continue to monitor.
[2018-09-04 23:30] LABS: CREATININE 0.72 mg/dL (0.55-1.30); POTASSIUM 3.6 mmol/L (3.5-5.1)
[2018-09-04 23:36] LABS: ALBUMIN 3.5 g/dL (3.4-4.8); TOTAL BILIRUBIN 0.2 mg/dL (0.0-1.0)
[2018-09-04 23:49] LABS: BILIRUBIN,URINE NEGATIVE (NEGATIVE); BLOOD, URINE NEGATIVE (NEGATIVE); CLARITY/URINE CLEAR (CLEAR); COLOR,URINE YELLOW (YELLOW); GLUCOSE,URINE NEGATIVE (NEGATIVE); KETONES,URINE NEGATIVE (NEGATIVE); LEUKOCYTE ESTERASE ,URINE NEGATIVE (NEGATIVE); NITRITE, URINE NEGATIVE (NEGATIVE); PROTEIN URINE TRACE (NEGATIVE); UROBILINOGEN,URINE 0.2 (0.2-1.0)
[2018-09-04 23:51] LABS: BASOPHILS # (AUTO) 0.1 K/uL (0.0-0.2); BASOPHILS % (AUTO) 0.7 % (0.0-2.0); EOSINOPHILS % (AUTO) 0.2 % (0.0-4.0); HEMATOCRIT 43.6 % (36-48); HEMOGLOBIN 14.6 g/dL (12.0-16.0); LYMPHOCYTES # (AUTO) 2.2 K/uL (1.0-5.5); LYMPHOCYTES % (AUTO) 29.9 % (20.5-51.5); MEAN CORPUSCULAR HEMOGLOBIN 31 pg (27-31); MEAN CORPUSCULAR HGB CONC 34 % (32-36); MEAN CORPUSCULAR VOLUME 92 fL (79.0-98.0); MONOCYTES # (AUTO) 0.6 K/uL (0.0-1.0); MONOCYTES % (AUTO) 8.1 % (1.7-9.3); NEUTROPHILS # (AUTO) 4.5 K/uL (1.8-7.7); NEUTROPHILS % (AUTO) 61.1 % (40.0-70.0); PLATELET COUNT (AUTO) 411 K/uL (130-430); RED BLOOD CELL COUNT(AUTO) 4.72 MIL/uL (4.2-6.2); RED CELL DISTRIBUTION WIDTH 14.7 % (9.0-15.0); WHITE BLOOD COUNT (AUTO) 7.4 K/uL (4.8-10.8)
[2018-09-04 23:54] LABS: BACTERIA,URINE FEW /HPF (None Seen); HYALINE CASTS, URINE 0-10 /LPF (None Seen); RBC,URINE 0-3 /HPF (0-3); WBC,URINE 0-3 /HPF (0-3)
[2018-09-05 00:09] LABS: BARBITURATE, URINE NEGATIVE (NEG <=200); BENZODIAZEPINE, URINE POSITIVE (NEG <=150); CANNABINOID, URINE NEGATIVE (NEG <=50); COCAINE, URINE NEGATIVE (NEG <=150); METHAMPHETAMINES SCREEN,URINE NEGATIVE (NEG <=500); OPIATE, URINE NEGATIVE (NEG <=100); PHENCYCLIDINE SCREEN,URINE NEGATIVE (NEG <=25); UR TRICYCLIC ANTIDEPRESSANTS NEGATIVE (NEG <=300); URINE AMPHETAMINE NEGATIVE (NEG <=500); URINE METHADONE NEGATIVE (NEG <=200); URINE OXYCODONE SCREEN NEGATIVE (NEG <=100); URINE PROPOXYPHENE SCREEN NEGATIVE (NEG <=300)
[2018-09-05 00:50] VITALS: BP_SYST 129
--- NOTE | 2018-09-05 00:50 | NUR ---
Patient given written and verbal discharge instructions and verbalizes understanding. ER MD discussed with patient the results and treatment provided. Patient in stable condition. ID arm band removed. IV catheter removed intact and dressing applied, no active bleeding. No Rx given. Patient educated on pain management and to follow up with PMD. Pain Scale 0. Opportunity for questions provided and answered. Medication side effect fact sheet provided.
--- NOTE | 2018-09-05 02:46 | NUR ---
Eleonora devlin in ED - 09/05/18 at 0300 by [email or web address] EL Rai at bedside examining patient.
== END 2018-09-05 00:50 | disposition home or self-care (01) ==
LOC: SED 22:21
DX: F10.129 Alcohol abuse with intoxication, unspecified (principal); F41.9 Anxiety disorder, unspecified; J45.909 Unspecified asthma, uncomplicated; Z88.8 Allergy status to other drugs, medicaments and biological substances; Z79.899 Other long term (current) drug therapy; Y90.6 Blood alcohol level of 120-199 mg/100 ml
CPT/HCPCS: 36415; 80053; 80307; 81000; 83690; 85025; 96374; 96361; 99283; G0482; J2060; J7030

== ENCOUNTER 2018-11-14 09:56 | Emergency (ER) | payer MEDICAID ==
[~2018-11-14] VITALS: Ht 170.2 cm; Wt 56.7 kg
[2018-11-14 09:56] VITALS: BP_SYST 123
[2018-11-14] MEDS ORDERED: NACL 0.9% 1,000 ML IV ONE (10:15)
[2018-11-14] MEDS ORDERED: LORazepam 2 MG/ML VIAL IVP ONE (10:15)
[2018-11-14] MEDS ORDERED: KETOROLAC TROMETHAMINE 30 MG VIAL IVP ONE (10:15)
[2018-11-14 10:53] LABS: EOSINOPHILS # (AUTO) 0.1 K/uL (0.0-0.4); EOSINOPHILS % (AUTO) 1.9 % (0.0-4.0); HEMATOCRIT 42.2 % (36-48); HEMOGLOBIN 14.3 g/dL (12.0-16.0); LYMPHOCYTES # (AUTO) 1.1 K/uL (1.0-5.5); LYMPHOCYTES % (AUTO) 24.7 % (20.5-51.5); MEAN CORPUSCULAR HEMOGLOBIN 33 pg (27-31); MEAN CORPUSCULAR HGB CONC 34 % (32-36); MEAN CORPUSCULAR VOLUME 97 fL (79.0-98.0); MONOCYTES # (AUTO) 0.4 K/uL (0.0-1.0); NEUTROPHILS # (AUTO) 2.9 K/uL (1.8-7.7); NEUTROPHILS % (AUTO) 64.4 % (40.0-70.0); PLATELET COUNT (AUTO) 256 K/uL (130-430); RED BLOOD CELL COUNT(AUTO) 4.35 MIL/uL (4.2-6.2); RED CELL DISTRIBUTION WIDTH 15.9 % (9.0-15.0); WHITE BLOOD COUNT (AUTO) 4.5 K/uL (4.8-10.8)
[2018-11-14 10:58] LABS: ANION GAP 11 (5-15); CALCIUM 10.1 mg/dL (8.4-11.0); CHLORIDE 99 mmol/L (98-107); CREATININE 0.86 mg/dL (0.55-1.30); GLUCOSE 100 mg/dL (70-99); POTASSIUM 4.6 mmol/L (3.5-5.1); SODIUM SERUM 139 mmol/L (136-145); UREA NITROGEN, BLOOD 15 mg/dL (8-21)
[2018-11-14 10:59] LABS: GFR AFRICAN AMERICAN 103 mL/min (>90)
[2018-11-14 11:11] LABS: ALANINE AMINOTRANSFERASE 96 U/L (12-78); ALBUMIN 4.9 g/dL (3.4-4.8); ASPARTATE AMINOTRANSFERASE 83 U/L (10-37); TOTAL BILIRUBIN 0.9 mg/dL (0.0-1.0)
[2018-11-14 11:12] LABS: ACETAMINOPHEN < 1 ug/mL (1-30); ALCOHOL, BLOOD < 3 mg/dL (<10)
[2018-11-14 12:20] LABS: BARBITURATE, URINE NEGATIVE (NEG <=200); BENZODIAZEPINE, URINE NEGATIVE (NEG <=150); CANNABINOID, URINE NEGATIVE (NEG <=50); COCAINE, URINE NEGATIVE (NEG <=150); METHAMPHETAMINES SCREEN,URINE NEGATIVE (NEG <=500); OPIATE, URINE NEGATIVE (NEG <=100); PHENCYCLIDINE SCREEN,URINE NEGATIVE (NEG <=25); UR TRICYCLIC ANTIDEPRESSANTS NEGATIVE (NEG <=300); URINE AMPHETAMINE NEGATIVE (NEG <=500); URINE METHADONE NEGATIVE (NEG <=200); URINE OXYCODONE SCREEN NEGATIVE (NEG <=100); URINE PROPOXYPHENE SCREEN NEGATIVE (NEG <=300)
[2018-11-14 12:41] VITALS: BP_SYST 123
== END 2018-11-14 12:40 | disposition home or self-care (01) ==
LOC: SED 09:56
DX: R56.9 Unspecified convulsions (principal); J45.909 Unspecified asthma, uncomplicated; F41.9 Anxiety disorder, unspecified; F17.200 Nicotine dependence, unspecified, uncomplicated; Z88.8 Allergy status to other drugs, medicaments and biological substances; Z79.899 Other long term (current) drug therapy
CPT/HCPCS: 36415; 70450; 72125; 80053; 80307; 85025; 93005; 96374; 96375; 99284; G0480; G0481; G0482; J1885; J2060; J7030

== ENCOUNTER 2020-05-05 18:08 | Emergency (ER) | payer MEDICAID ==
[~2020-05-05] VITALS: Ht 172.7 cm; Wt 59.0 kg
[2020-05-05 18:28] VITALS: BP_SYST 133
[2020-05-05] MEDS ORDERED: LORazepam 2 MG/ML VIAL IVP ONE ×2 (18:45→19:45)
[2020-05-05] MEDS ORDERED: LORazepam 2 MG/ML VIAL ONE ×2 (18:51→19:48)
[2020-05-05 18:56] LABS: BASOPHILS % (AUTO) 0.7 % (0.0-2.0); EOSINOPHILS # (AUTO) 0.2 K/uL (0.0-0.4); EOSINOPHILS % (AUTO) 2.8 % (0.0-4.0); HEMATOCRIT 41.2 % (36-48); HEMOGLOBIN 13.9 g/dL (12.0-16.0); LYMPHOCYTES # (AUTO) 2.6 K/uL (1.0-5.5); MEAN CORPUSCULAR HEMOGLOBIN 30 pg (27-31); MEAN CORPUSCULAR HGB CONC 34 % (32-36); MEAN CORPUSCULAR VOLUME 90 fL (79.0-98.0); MONOCYTES # (AUTO) 0.4 K/uL (0.0-1.0); MONOCYTES % (AUTO) 5.6 % (1.7-9.3); NEUTROPHILS # (AUTO) 3.2 K/uL (1.8-7.7); NEUTROPHILS % (AUTO) 49.9 % (40.0-70.0); PLATELET COUNT (AUTO) 283 K/uL (130-430); RED BLOOD CELL COUNT(AUTO) 4.56 MIL/uL (4.2-6.2); RED CELL DISTRIBUTION WIDTH 14.5 % (9.0-15.0); WHITE BLOOD COUNT (AUTO) 6.3 K/uL (4.8-10.8)
[2020-05-05 19:12] LABS: ANION GAP 14 (5-15); CALCIUM 8.5 mg/dL (8.4-11.0); CHLORIDE 103 mmol/L (98-107); CREATININE 0.79 mg/dL (0.55-1.30); GLUCOSE 90 mg/dL (70-99); POTASSIUM 3.8 mmol/L (3.5-5.1); SODIUM SERUM 142 mmol/L (136-145); UREA NITROGEN, BLOOD 22 mg/dL (8-21)
[2020-05-05 19:16] LABS: ACETONE, SERUM NEGATIVE (NEGATIVE)
[2020-05-05 19:17] LABS: INR 0.9 (0.8-1.2); PROTHROMBIN TIME 9.2 SECS (9.5-12.5)
[2020-05-05 19:27] LABS: ALANINE AMINOTRANSFERASE 90 U/L (12-78); ALBUMIN 3.9 g/dL (3.4-4.8); ALCOHOL, BLOOD 390 mg/dL (<10); AMYLASE 155 U/L (0-100); ASPARTATE AMINOTRANSFERASE 107 U/L (10-37); LIPASE 406 U/L (73-393); TOTAL BILIRUBIN 0.1 mg/dL (0.0-1.0)
[2020-05-05] MEDS ORDERED: LORA-259 PO (20:03)
[2020-05-05] MEDS ORDERED: OMEP20TA20 PO (20:03)
[2020-05-05 20:08] VITALS: BP_SYST 121
== END 2020-05-05 20:08 | disposition home or self-care (01) ==
LOC: SED 18:08
DX: R56.9 Unspecified convulsions (principal); F10.10 Alcohol abuse, uncomplicated; J45.909 Unspecified asthma, uncomplicated; F41.9 Anxiety disorder, unspecified
CPT/HCPCS: 36415; 70450; 76376; 80053; 81025; 82009; 82150; 83605; 83690; 84484; 85025; 85610; 85730; 96374; 96376; 99284; G0482; J2060

== ENCOUNTER 2021-01-19 06:31 | Emergency (ER) | payer MEDICAID, SELFPAY ==
[~2021-01-19] VITALS: Ht 170.2 cm; Wt 54.4 kg
[2021-01-19 06:31] VITALS: BP_SYST 145
[~2021-01-19 06:31] MED LIST changes: +FOLI-43 PO; +LEVE500T53 PO; +LIB25 PO; -LORA2TAB95 PO; +MULT-33 PO; +Thiamine Hcl PO
--- NOTE | 2021-01-19 06:31 | NUR ---
Placed in room 1 . Placed on monitor tech, blood pressure machine and pulse oximeter. To gown for exam. Side rails up. Report given to Romulo CORBETT.
--- NOTE | 2021-01-19 06:31 | NUR ---
EL Reyes at bedside examining patient.
--- NOTE | 2021-01-19 06:35 | NUR ---
# 20 gauge angiocath placed to RAC. Use of asceptic technique. Opsite placed over site. Blood return noted. Blood for lab drawn from site. Flushed with 10 cc of normal saline. No evidence of infiltration noted. Patient tolerated well. Medicated w/ solumedrol and Magnesium per MD orders. IVF w/ 0.9% NS infusing with no s/s of infiltration at this time. Will cont to monitor and observe for any adverse reaction.
[2021-01-19] MEDS ORDERED: NACL 0.9% 1,000 ML IV ONE ×2 (06:45→08:45)
[2021-01-19] MEDS ORDERED: methylPREDNISolone SOD SUCC/PF 62.5 MG/ML VIAL IVP ONE (06:45)
[2021-01-19] MEDS ORDERED: MAGNESIUM SULFATE 1 GM/2 ML VIAL IVP ONE (06:45)
[2021-01-19] MEDS ORDERED: DIAZEPAM 10 MG/2 ML DISP.SYRIN IVP ONE ×2 (06:45→07:30)
[2021-01-19] MEDS ORDERED: IPRATROPIUM/ALBUTEROL SULFATE 3 ML AMPUL.NEB (DUONEB) INH ONE (06:45)
[2021-01-19] MEDS ORDERED: ALBUTEROL SULFATE 0.083% 2.5 MG/3 ML VIAL.NEB INH ONE ×2 (06:54→08:15)
[2021-01-19 06:56] LABS: BASOPHILS % (AUTO) 0.5 % (0.0-2.0); EOSINOPHILS # (AUTO) 0.7 K/uL (0.0-0.4); EOSINOPHILS % (AUTO) 8.4 % (0.0-4.0); HEMATOCRIT 43.6 % (36-48); HEMOGLOBIN 14.6 g/dL (12.0-16.0); LYMPHOCYTES # (AUTO) 3.1 K/uL (1.0-5.5); LYMPHOCYTES % (AUTO) 38.1 % (20.5-51.5); MEAN CORPUSCULAR HEMOGLOBIN 32 pg (27-31); MEAN CORPUSCULAR HGB CONC 33 % (32-36); MEAN CORPUSCULAR VOLUME 96 fL (79.0-98.0); MONOCYTES # (AUTO) 0.5 K/uL (0.0-1.0); MONOCYTES % (AUTO) 6.1 % (1.7-9.3); NEUTROPHILS # (AUTO) 3.8 K/uL (1.8-7.7); NEUTROPHILS % (AUTO) 46.9 % (40.0-70.0); PLATELET COUNT (AUTO) 294 K/uL (130-430); RED BLOOD CELL COUNT(AUTO) 4.56 MIL/uL (4.2-6.2); RED CELL DISTRIBUTION WIDTH 13.3 % (9.0-15.0)
--- NOTE | 2021-01-19 06:58 | NUR ---
UNABLE TO ACQUIRE A READABLE EKG, DR RAMIREZ IS AWARE.
[2021-01-19] MEDS ORDERED: MIDAZOLAM HCL 5 MG/5 ML VIAL IVP ONE (07:00)
[2021-01-19] MEDS ORDERED: LR 1,000 ML IV ONE (07:00)
[2021-01-19 07:12] LABS: ANION GAP 9 (5-15); CALCIUM 9.4 mg/dL (8.4-11.0); CHLORIDE 104 mmol/L (98-107); CREATININE 0.77 mg/dL (0.55-1.30); GLUCOSE 107 mg/dL (70-99); POTASSIUM 3.8 mmol/L (3.5-5.1); SODIUM SERUM 141 mmol/L (136-145); UREA NITROGEN, BLOOD 11 mg/dL (8-21)
[2021-01-19 07:15] LABS: GFR AFRICAN AMERICAN 115 mL/min (>90)
--- NOTE | 2021-01-19 07:15 | NUR ---
Assumed care of pt. on 10L/min of O2, audible wheezing noted, tachypneic, O2 sat 99%, assisted pt OOB to bathroom, urine specimen obtained, Covid swab done, POC discussed with pt. Addendum: 01/19/21 at 0750 by [email or web address] pt. was not on routine O2 of 10L/min. was on breathing tx.
[2021-01-19 07:26] LABS: ALANINE AMINOTRANSFERASE 30 U/L (12-78); ALBUMIN 3.9 g/dL (3.4-4.8); ASPARTATE AMINOTRANSFERASE 23 U/L (10-37); BILIRUBIN,DIRECT < 0.1 mg/dL (0.0-0.3); HCG,QUANTITATIVE 0 mIU/ML (0-6); TOTAL BILIRUBIN 0.3 mg/dL (0.0-1.0)
[2021-01-19 07:27] LABS: ALCOHOL, BLOOD < 3 mg/dL (<10)
[2021-01-19] MEDS ORDERED: DIAZEPAM 10 MG/2 ML DISP.SYRIN ONE (07:35)
--- NOTE | 2021-01-19 07:45 | NUR ---
CHEST XRAY AT BEDSIDE
--- NOTE | 2021-01-19 08:00 | NUR ---
Pt. sleeping, O2 sat 97% on RA, RR 32
[2021-01-19 08:03] LABS: BARBITURATE, URINE NEGATIVE (NEG <=200); BENZODIAZEPINE, URINE NEGATIVE (NEG <=150); CANNABINOID, URINE NEGATIVE (NEG <=50); COCAINE, URINE NEGATIVE (NEG <=150); METHAMPHETAMINES SCREEN,URINE POSITIVE (NEG <=500); OPIATE, URINE NEGATIVE (NEG <=100); PHENCYCLIDINE SCREEN,URINE NEGATIVE (NEG <=25); UR TRICYCLIC ANTIDEPRESSANTS NEGATIVE (NEG <=300); URINE AMPHETAMINE POSITIVE (NEG <=500); URINE METHADONE NEGATIVE (NEG <=200); URINE OXYCODONE SCREEN NEGATIVE (NEG <=100); URINE PROPOXYPHENE SCREEN NEGATIVE (NEG <=300)
[2021-01-19 08:06] LABS: BILIRUBIN,URINE NEGATIVE (NEGATIVE); BLOOD, URINE 3+ (NEGATIVE); CLARITY/URINE CLEAR (CLEAR); GLUCOSE,URINE NEGATIVE (NEGATIVE); KETONES,URINE NEGATIVE (NEGATIVE); LEUKOCYTE ESTERASE ,URINE TRACE (NEGATIVE); NITRITE, URINE NEGATIVE (NEGATIVE); PROTEIN URINE NEGATIVE (NEGATIVE); UROBILINOGEN,URINE 0.2 (0.2-1.0)
--- NOTE | 2021-01-19 08:26 | NUR ---
Freddy Luna, (pts. mom),
[2021-01-19 08:50] LABS: COLOR,URINE RED (YELLOW)
[2021-01-19 09:45] LABS: BACTERIA,URINE RARE /HPF (None Seen); RBC,URINE 20-50 /HPF (0-3)
[2021-01-19] MEDS ORDERED: ALBMDI INH (10:32)
[2021-01-19] MEDS ORDERED: PRED20TA PO (10:32)
--- NOTE | 2021-01-19 11:00 | NUR ---
Dr. Mann spoke with pt. in detail about admission, pt. refuses and is willing to sign out AMA and aware of risk
[2021-01-19] MEDS ORDERED: ALBU2.5V7 INH (11:04)
--- NOTE | 2021-01-19 11:10 | NUR ---
Dr. Mann printed discharge instructions and sent in prescription but pt. is leaving AMA
--- NOTE | 2021-01-19 11:12 | NUR ---
Patient given written and verbal discharge instructions and verbalizes understanding. ER Dr. Mann discussed with patient the results and treatment provided. Patient is leaving AMA. ID arm band removed. IV catheter removed intact and dressing applied, no active bleeding. Rx of Prednisone and albuterol given. Patient educated on pain management and to follow up with PMD. Pain Scale 0. Opportunity for questions provided and answered. Medication side effect fact sheet provided.
[2021-01-19 11:13] VITALS: BP_SYST 100
== END 2021-01-19 11:12 | disposition left against medical advice (07) ==
LOC: SED 06:31
DX: J45.901 Unspecified asthma with (acute) exacerbation (principal); F15.129 Other stimulant abuse with intoxication, unspecified; Z88.8 Allergy status to other drugs, medicaments and biological substances; Z79.899 Other long term (current) drug therapy; Z20.822 Contact with and (suspected) exposure to COVID-19
CPT/HCPCS: 36415; 71045; 80048; 80076; 80307; 81000; 83880; 84484; 84702; 85025; 87426; 93005; 94640; 96361; 96374; 96375; 99291; G0482; J2930; J3360; J3475; J7030; J7613